=== PATIENT | male | born 2000 | race Caucasian/White ===

== ENCOUNTER → 2020-10-06 | Emergency (ER) | payer MEDICAID ==
[~2020-10-06] VITALS: Ht 177.8 cm; Wt 72.6 kg
--- NOTE | 2020-10-06 18:27 | NUR ---
PT BIBA TO BED 08.
[2020-10-06 18:28] VITALS: BP 106/64
--- NOTE | 2020-10-06 18:40 | NUR ---
Stalin garcía in [facility] - 10/06/20 [facility] 18[facility] is evaluating [facility] at bedside.
--- NOTE | 2020-10-06 18:43 | NUR ---
PATIENT LEFT WITHOUT BEING SEEN BY DR. DE LA CRUZ. NO FURTHER CARE PROVIDED FOR PATIENT.
== END | disposition left against medical advice (07) ==
LOC: MED 18:26
DX: R09.81 Nasal congestion (principal); R11.2 Nausea with vomiting, unspecified; Z53.21 Procedure and treatment not carried out due to patient leaving prior to being seen by health care provider